=== PATIENT | male | born 1965 | race Caucasian/White ===

== ENCOUNTER 2017-06-01 07:19 | Inpatient (IN) | payer OTHER ==
[~2017-06-01] VITALS: Ht 175.3 cm; Wt 83.9 kg
[2017-06-01 07:27] VITALS: BP 172/95
[2017-06-01] MEDS ORDERED: ACYCLOVIR 400400 MG PO (07:46)
[2017-06-01] MEDS ORDERED: LEXAPRO20 MG PO (07:46)
[2017-06-01 08:01] LABS: URINE BILIRUBIN NEGATIVE (Negative); URINE BLOOD TRACE (Negative); URINE CLARITY CLEAR; URINE COLOR YELLOW; URINE GLUCOSE-RANDOM NEGATIVE (Negative); URINE KETONES NEGATIVE (Negative); URINE LEUKOCYTES-REFLEX NEGATIVE (Negative); URINE NITRITE-REFLEX NEGATIVE (Negative); URINE PROTEIN 1+ (Negative); URINE UROBILINOGEN 0.2 E.U./dl (0.2-1.0)
[2017-06-01 08:23] LABS: HEMATOCRIT 44.5 % (42.0-52.0); HEMOGLOBIN 15.3 gm/dL (14.0-18.0); MCH 29.7 pg (26.0-34.0); MCHC 34.3 g/dL (28.0-37.0); MCV 86.7 fL (80.0-100.0); MPV 8.5 fl. (7.2-11.1); NUCLEATED RBCS 0 /100WBC; PLATELET COUNT* 237 thou/uL (150-400); RBC 5.14 mil/uL (4.50-6.00); WBC 9.1 thou/uL (4.0-11.0)
[2017-06-01 08:35] LABS: ALBUMIN 3.8 g/dL (3.4-5.0); CALCIUM 8.7 mg/dL (8.5-10.1); POTASSIUM 3.9 mmol/L (3.5-5.1); TOTAL BILIRUBIN 0.6 mg/dL (<0.1-1.0); TOTAL PROTEIN 7.4 g/dL (6.4-8.2)
[2017-06-01 08:43] LABS: ABSOLUTE BASOPHILS 0.1 thou/uL (0.0-0.2); ABSOLUTE EOSINOPHILS 0.1 thou/uL (0.0-0.7); ABSOLUTE LYMPHOCYTES 0.9 thou/uL (0.8-5.3); ABSOLUTE MONOCYTES 0.4 thou/uL (0.0-1.2); ABSOLUTE NEUTROPHILS 7.6 thou/uL (1.6-8.1); PLATELET ESTIMATE ADEQUATE
[2017-06-01 09:55] VITALS: BP 128/64
[2017-06-01 10:00] VITALS: BP 142/92
[2017-06-01 15:20] VITALS: BP 140/85
[2017-06-01] MEDS ORDERED: ZYVOX600 MG PO (18:00)
[2017-06-01 18:01] VITALS: BP 140/85
--- NOTE | 2017-06-01 18:26 | NUR ---
PATIENT INSISTED ON DISCHARGING TONIGHT. DR ARCHULETA DISCHARGED PATIENT TO HOME. PRESCRIPTION FOR ZYVOX AND INFORMATION SHEETS GIVEN. IV REMOVED. PATIENT AMBULATORY TO EXIT. LEFT WITH .
== END 2017-06-01 18:10 | disposition left against medical advice (07) | DRG 155 ==
LOC: M.ERS 07:19 → M.TBA-ER 08:04 → M.3W 09:56
PROVIDERS: Emergency Medicine Emergency Medical Services; ADMIT Family Medicine
DX: J34.0 Abscess, furuncle and carbuncle of nose (principal); R65.10 Systemic inflammatory response syndrome (SIRS) of non-infectious origin without acute organ dysfunction; F32.9 Major depressive disorder, single episode, unspecified; F41.9 Anxiety disorder, unspecified; B95.62 Methicillin resistant Staphylococcus aureus infection as the cause of diseases classified elsewhere; F10.10 Alcohol abuse, uncomplicated; F17.210 Nicotine dependence, cigarettes, uncomplicated; Z79.899 Other long term (current) drug therapy; Z88.8 Allergy status to other drugs, medicaments and biological substances; Z82.49 Family history of ischemic heart disease and other diseases of the circulatory system

== ENCOUNTER → 2019-08-26 | Outpatient (CLI) | payer OTHER ==
[~2019-08-26] MED LIST: ACYCLOVIR 400400 MG PO; LEXAPRO20 MG PO; ZYVOX600 MG PO
== END ==
LOC: M.LAB 16:24
PROVIDERS: ATTEND Internal Medicine Gastroenterology
DX: Z01.812 Encounter for preprocedural laboratory examination (principal); Z11.59 Encounter for screening for other viral diseases; Z80.0 Family history of malignant neoplasm of digestive organs

== ENCOUNTER → 2019-09-01 | Outpatient (CLI) | payer OTHER | LOC: M.LAB 12:55 | PROVIDERS: ATTEND Internal Medicine Gastroenterology | DX: Z01.812 Encounter for preprocedural laboratory examination (principal); Z11.59 Encounter for screening for other viral diseases; Z80.0 Family history of malignant neoplasm of digestive organs ==

== ENCOUNTER 2019-09-09 08:04 | Inpatient (IN) | payer OTHER ==
[~2019-09-09] VITALS: Ht 175.3 cm; Wt 88.8 kg
[2019-09-09 08:07] VITALS: BP 161/92
[2019-09-09] MEDS ORDERED: LISINOPRIL2.5 MG PO (08:12)
[2019-09-09] MEDS ORDERED: OLANZAPINE5 M1 PO (08:13)
[2019-09-09] MEDS ORDERED: LEVAQUIN 500 M500 M3 PO (08:14)
[2019-09-09 08:38] LABS: HEMATOCRIT 42.3 % (42.0-52.0); HEMOGLOBIN 14.4 gm/dL (14.0-18.0); MCH 29.2 pg (26.0-34.0); MCHC 34.1 g/dL (28.0-37.0); MCV 85.4 fL (80.0-100.0); MPV 7.4 fl. (7.2-11.1); NUCLEATED RBCS 0 /100WBC; PLATELET COUNT* 421 thou/uL (150-400); RBC 4.95 mil/uL (4.50-6.00); RDW-CV 12.3 % (10.5-14.5); WBC 20.2 thou/uL (4.0-11.0)
[2019-09-09 08:45] LABS: CALCIUM 8.6 mg/dL (8.5-10.1); POTASSIUM 3.6 mmol/L (3.5-5.1)
[2019-09-09 08:52] LABS: BE -0.6 mmol/L (-2 to +3); PCO2 28.7 mmHg (35.0-45.0); PO2 65.2 mmHg (75.0-100.0)
[2019-09-09 08:56] LABS: APTT 29.9 Seconds (25.0-31.3); INR 1.2; PROTIME 12.3 Seconds (9.20-11.50)
[2019-09-09 08:57] LABS: ALBUMIN 2.7 g/dL (3.4-5.0); MAGNESIUM 1.8 mg/dL (1.8-2.4); TOTAL BILIRUBIN 0.9 mg/dL (<0.1-1.0); TOTAL PROTEIN 7.2 g/dL (6.4-8.2)
[2019-09-09 09:22] LABS: ABSOLUTE MONOCYTES 0.2 thou/uL (0.0-1.2)
[2019-09-09 09:23] LABS: ANISOCYTOSIS 1+; PLATELET ESTIMATE INCREASED; POIKILOCYTOSIS 1+
[2019-09-09 09:34] LABS: URINE BILIRUBIN NEGATIVE (Negative); URINE BLOOD TRACE (Negative); URINE CLARITY CLEAR; URINE COLOR YELLOW; URINE GLUCOSE-RANDOM NEGATIVE (Negative); URINE KETONES NEGATIVE (Negative); URINE LEUKOCYTES-REFLEX NEGATIVE (Negative); URINE NITRITE-REFLEX NEGATIVE (Negative); URINE PROTEIN NEGATIVE (Negative)
[2019-09-09 13:12] VITALS: BP 137/87
[2019-09-09 13:30] VITALS: BP 147/86
[2019-09-09 13:43] LABS: BF RBC 5165 /mm3; TOTAL CELL COUNT 415 /mm3
[2019-09-09 14:31] LABS: BF OTHER CYTO TO FOLLOW; CLARITY CLOUDY; TOTAL VOLUME 40 ml
[2019-09-09 14:34] LABS: BF LYMPHOCYTES 18 %; BF POLYS 82 %
[2019-09-09 15:03] LABS: SOURCE PLEURAL FLUID
--- NOTE | 2019-09-09 15:54 | EKG ---
[place] [address] ELECTROCARDIOGRAM REPORT Name: BUTCH ROSAS Room: [address] ADM IN .R.#: [id number] Admission: 09/09/19 Attend Phys: Bob Jasso, Discharge: Date of : 63 Date of Service: 09/09/19818 Report #: [id number] THIS REPORT FOR: //name// [facility] ED Test Date: 2019-09-09 Test Time: 08:19:40 Pat Name: BUTCH ROSAS Department: Room: [facility] Gender: M Chief Librarian Circulation [place] [facility] [place] 1965 Requested By: Brandi Saravia Order Number: [id number] Jesús MD: Bruce Rock Measurements Intervals [place] Rate: 133 P: RI: QRS: -28 QRSD: 89 T: 263 QT: 358 QTc: 533 Interpretive Statements Sinus tachycardia, Baseline artifact Inferior infarct, age indeterminate ST elevation, consider anterior injury Lateral leads are also involved Prolonged QT interval No previous ECG available for comparison Electronically Signed On 09-09-2019 13:03:10 CDT by Bruce Rock Electronically Signed On 09-09-2019 15:54:27 CDT by Bruce Rock [email or web address] <ELECTRONICALLY SIGNED> By: Bruce Rock MD, FACC 09/09/19 1554 8 8 Bruce Rock MD, FAC /EPI
--- NOTE | 2019-09-09 16:10 | NUR ---
PATINET RESTING IN BED.UP AD VERNON IN ROOM. SINUS TACH ON MONITOR. 2L PER NASAL CANULA. DENIES PAIN. HOURLY ROUNDING COMPLETED FOR PATINET SAFETY.
--- NOTE | 2019-09-09 16:50 | EKG ---
[place] [address] ELECTROCARDIOGRAM REPORT Name: BUTCH ROSAS Room: [address] ADM IN .R.#: [id number] Admission: 09/09/19 Attend Phys: Bob Jasso, Discharge: Date of : 63 Date of Service: 09/09/19900 Report #: [id number] THIS REPORT FOR: //name// [facility] ED Test Date: 2019-09-09 Test Time: 09:01:32 Pat Name: BUTCH ROSAS Department: Room: [address] Gender: M Finance Consultant: LIONEL : 1965 Requested By: Brandi Saravia Order Number: [id number] Jesús MD: Clay Calvin Measurements Intervals [place] Rate: 115 P: FL: QRS: 36 QRSD: 101 T: 72 QT: 296 QTc: 410 Interpretive Statements sinus tachycardia artifact noted Compared to ECG 09/09/2019 08:19:40 ST (T wave) deviation still present Electronically Signed On 09-09-2019 16:49:55 CDT by Clay Calvin [email or web address] <ELECTRONICALLY SIGNED> By: Clay Calvin MD, [facility] 09/09/19 1649 0901 0901 Clay Calvin MD, [facility] /EPI
--- NOTE | 2019-09-09 17:36 | 2DMMODE ---
[place] [address] 2 D/M-MODE ECHOCARDIOGRAM Name: BUTCH ROSAS Room: [address] IN [place]#: [id number] Admission: 09/09/19 Attend Phys: Bob Jasso, Discharge: Date of : 63 Date of Service: 09/09/19 1735 Report #: [id number] THIS REPORT FOR: cc: Abhi Ramsey John E. DO Blick,Clay Lima MD [facility] ~ APPROVED REPORT Study performed: 09/09/2019 15:44:17 EXAM: Comprehensive 2D, Doppler, and color-flow Echocardiogram Patient Location: In-Patient Room #: [facility] Status: routine BSA: 2.07 HR: 95 bpm BP: 137/87 mmHg Rhythm: NSR Other Information Study Quality: Good Indications Atrial Fibrillation 2D Dimensions IVSd: 11.11 (7-11mm) LVOT Diam: 21.09 (18-24mm) LVDd: 38.87 mm PWd: 10.49 (7-11mm) Ascending Ao: 30.16 (22-36mm) LVDs: 25.78 (25-40mm) Aortic Root: 35.37 mm Volumes Left Atrial Volume (Systole) LA ESV Index: 23.20 mL/m2 Aortic Valve AoV Peak Sea.: 1.75 m/s AO Peak Gr.: 12.22 mmHg LVOT Max P.07 mmHg AO Mean Gr.: 5.89 mmHg LVOT Mean P.16 mmHg LVOT Max V: 1.33 m/s AO V2 VTI: 23.24 cm LVOT Mean V: 0.80 m/s [place] (VTI): 3.39 cm2 LVOT V1 VTI: 22.59 [place] [address] 2 D/M-MODE ECHOCARDIOGRAM Name: BUTCH ROSAS Room: [address] IN ..#: [id number] Admission: 09/09/19 Attend Phys: Bob Jasso, Discharge: Date of : 63 Date of Service: 09/09/19 1735 Report #: [id number] Mitral Valve E/A Ratio: 1.03 MV Decel. Time: 284.08 ms MV E Max Sea.: 0.83 m/s MV PHT: 82.38 ms MVA (PHT): 2.67 cm2 TDI E/Lateral E': 10.38 E/Medial E': 7.55 Medial E' Sea.: 0.11 m/s Lateral E' Sea.: 0.08 m/s Pulmonary Valve PV Peak Sea.: 1.10 m/s PV Peak Gr.: 4.84 mmHg Left Ventricle The left ventricle is normal size. There is normal LV segmental wall motion. There is normal left ventricular wall thickness. Left ventricular systolic function is normal. The left ventricular ejection fraction is within the normal range. LVEF is 65-70%. Right Ventricle The right ventricle is normal size. The right ventricular systolic function is normal. Atria The left atrium size is normal. The right atrium size is normal. Aortic Valve The aortic valve is normal in structure. No aortic regurgitation is present. There is no aortic valvular stenosis. Mitral Valve The mitral valve is normal in structure. There is no mitral valve regurgitation noted. No evidence of mitral valve stenosis. Tricuspid Valve The tricuspid valve is normal in structure. Unable to assess PA pressure. Trace tricuspid regurgitation. Pulmonic Valve Pulmonic valve is not well visualized. There is no pulmonic valvular regurgitation[place] [address] 2 D/M-MODE ECHOCARDIOGRAM Name: ALCONJOHNBUTCH Room: [address] IN [facility]#: [id number] Admission: 09/09/19 Attend Phys: Bob Jasso, Discharge: Date of : 63 Date of Service: 09/09/19 1735 Report #: [id number] The aortic root is normal in size. IVC is normal in size and collapses >50% with inspiration. Pericardium There is no pericardial effusion. <Conclusion> Left ventricular systolic function is normal. The left ventricular ejection fraction is within the normal range. <ELECTRONICALLY SIGNED> By: Clay Calvin MD, [facility] 09/09/19 1735 1735 1735 Clay Calvin MD, [facility] /INF
[2019-09-09 19:50] VITALS: BP 138/81
[2019-09-10] VITALS: BP 118/62
[2019-09-10 02:06] LABS: GLYCOHEMOGLOBIN (HGB A1C) 6.6 % (4.8-5.6)
[2019-09-10 04:00] VITALS: BP 144/90
[2019-09-10 04:49] LABS: HEMATOCRIT 43.1 % (42.0-52.0); HEMOGLOBIN 14.4 gm/dL (14.0-18.0); MCH 29.5 pg (26.0-34.0); MCHC 33.4 g/dL (28.0-37.0); MCV 88.1 fL (80.0-100.0); RBC 4.89 mil/uL (4.50-6.00); RDW-CV 12.3 % (10.5-14.5)
[2019-09-10 05:12] LABS: CALCIUM 8.8 mg/dL (8.5-10.1); CREATININE 0.9 mg/dL (0.6-1.3); MAGNESIUM 2.4 mg/dL (1.8-2.4); POTASSIUM 4.4 mmol/L (3.5-5.1)
--- NOTE | 2019-09-10 07:52 | NUR ---
PT CARE ASSUMED AT 1930. SAT MAINTAINED IN O2. PT IS DROWSY. ALERT AND ORIENTED X4. DENIES PAIN AND SOB. CALL LIGHT WITHIN REACH AND BED IN LOW POSITION. HOURLY ROUNDING DONE FOR PT SAFETY.
[2019-09-10 08:00] VITALS: BP 125/89
[2019-09-10 12:21] VITALS: BP 123/73
--- NOTE | 2019-09-10 15:33 | CON ---
[address] [address] CONSULTATION Name: BUTCH ROSAS Room: [address] IN .R.#: [id number] Admission: 09/09/19 Attend Phys: Bob Jasso MD Discharge: Date of : 63 Report #: [id number] THIS REPORT FOR: //name// cc: Abhi Ramsey John E. DO ~ THIS REPORT FOR: //name// CC: Bob Ramsey DATE OF SERVICE: 09/10/2019 CONSULT REQUESTED BY: Bob Jasso MD INDICATION FOR CONSULTATION: Pleural effusion. HISTORY OF PRESENT ILLNESS: This is a 54-year-old gentleman. His past medical history includes an extensive history of smoking. The patient, however, has not been previously diagnosed with COPD. The patient also has previously been treated by Dr. Ronquillo in 2018 for a complicated nasal cellulitis/facial cellulitis, which is reported to be statistically frequently caused by MRSA. There is no positive culture for MRSA, however. The patient had back then received linezolid. More recently, the patient has been sick for 1-1/2 weeks, in fact before this about 2-1/2 weeks ago, he was planning a colonoscopy; and therefore, had a COVID-19 test performed and since then he has been tested for COVID-19 for around 4 or 5 times, all of which are negative. The patient reports that he started getting sick around 10 days ago. He reports that his primary complaint has been chest pain. He says that he has been having chest pain on the left side of his chest associated with respiration and coughing to the point that at times he was screaming. The patient also reports that he had a high-grade fever up to 101 degrees Fahrenheit at home and did have chills and sweats as well. Upon arrival here, the patient's temperature was 37.9. The patient reports that for similar period of time, he has had a significant cough. The patient reports that initially in fact did have significant sputum production, which was yellow as well as green. The patient reports that he is still coughing, but in fact the sputum production is now subsiding. He reports shortness of breath as well, primarily on exertion also for around the last 10 days. The patient at this time does not have a nose complaints. He does not have a sore throat. He does not have swelling of lower extremities. He does not have calf pain. The patient has been treated as an outpatient for these complaints. He has finished two Z-PAKs. He has received a prednisone taper as well. The patient does not report any significant shortness of [place] [address] CONSULTATION Name: BUTCH ROSAS Room: [address] IN .R.#: [id number] Admission: 09/09/19 Attend Phys: Bob Jasso MD Discharge: Date of : 63 Report #: [id number] baseline. He, however, does have sleep complaints at his baseline, primarily related to daytime sleepiness at times. I asked him a total of 14 questions for review of systems. The patient's review of systems is negative except as mentioned above. PAST MEDICAL HISTORY: Facial/nasal cellulitis as described above, depression, skin allergies. There is a clinical history consistent with obstructive sleep apnea. The patient has previously not been diagnosed. The patient had an echocardiogram performed yesterday, which shows a left ventricular ejection fraction of 65-70% without elevation in right heart pressures. SOCIAL HISTORY: He has an extensive history of smoking around 1-2 packs a day, has been smoking for several decades and was smoking until 08/27 of this year. No known history of heavy alcohol use or illegal drug use. CURRENT MEDICATIONS: List in [employer] reviewed. HOME MEDICATIONS: List also in [employer] reviewed. ALLERGIES: REPORTED TO BE ALLERGIC TO KEFLEX AND FORMALDEHYDE. He is, however, tolerating Zosyn without reaction. FAMILY HISTORY: There is no pertinent family history. PHYSICAL EXAMINATION: GENERAL: He is alert, awake and oriented, does not appear to be in any distress at this time. He had a fever of 37.9 overnight. He is 36.6 now. VITAL SIGNS: Has a pulse of 82 and a blood pressure of 144/90, he is on 4 liters oxygen via nasal cannula and is oxygenating 94-95%. His respiratory rate is 16-18. HEENT: Head is normocephalic and atraumatic. Pupils are equal and reactive. There is no throat erythema. Airway is Mallampati 2. NECK: Does not show raised JVP, asymmetry, mass or lymph nodes. CHEST: On inspection did show symmetrical expansion as well as on palpation, but on auscultation, there is a marked decrease in breath sounds on the left side, in fact breath sounds are absent at the left lung base. I do not hear any added sounds. HEART: Regular. There is no murmur. ABDOMEN: Soft and nontender. EXTREMITIES: Lower extremities show no edema, no calf tenderness. SKIN: Dry and intact. NEUROLOGICAL: Moves all extremities bilaterally equally and spontaneously with no focal deficit identified. LABORATORY DATA: The patient's CTA chest is reviewed. His two chest x-rays are also reviewed. There is a left lower lobe infiltrate. There is also a [facility] [address] [place] [address] CONSULTATION Name: BUTCH ROSAS Room: [address] IN [facility]#: [id number] Admission: 09/09/19 Attend Phys: Bob Jasso MD Discharge: Date of : 63 Report #: [id number] left-sided pleural effusion. There is a suspicion of loculations in the pleural effusion. Also, there is suspicion of empyema. There is also some mediastinal lymphadenopathy, presently to be as reactive. There are no pulmonary emboli. The patient's CBC as well as chemistries are in [facility]. These are reviewed. Coagulation studies in [facility] reviewed. Arterial blood gas consistent with acute hypoxemic respiratory failure in [facility] reviewed. There is respiratory alkalosis. The patient has a large amount of rbc's in his pleural fluid. The glucose and protein as well as LDH are pending. The COVID-19 screen is again negative. ASSESSMENT AND PLAN: 1. Left lower lobe infiltrate with pleural effusion/suspicion of empyema. The patient has already had thoracentesis performed yesterday. Unfortunately, only 40 mL of fluid could be drained. This is consistent with a loculated pleural effusion. The patient is planned for a pigtail chest tube placement today. I fully agree with this. However, the likelihood that this pleural effusion will fail to drain with a pigtail chest tube is significant. I do recommend a full drainage of this pleural effusion; and therefore, if adequate drainage is not achieved with the placement of the chest tube then I would recommend transferring this patient to a facility where a thoracic surgeon is available for a VATS procedure or thoracotomy. Meanwhile, since the patient has already received 2 courses of Z-SRINATH, I would go ahead and discontinue his azithromycin. I agree with continuing with Zosyn. Would recommend adding vancomycin. We will follow cultures from the thoracentesis fluid. Sputum culture has already been ordered and is pending. I recommend that we also obtain a nasal swab for MRSA. 2. History of smoking. The patient may have underlying mild chronic obstructive pulmonary disease as well, previously undiagnosed. Therefore, I switched his DuoNebs to schedule. He is ordered 3 doses of prednisone 60 mg. I for now agree with this. Certainly additional steroids could be administered should the patient's condition deteriorate. Smoking cessation is strongly recommended. 3. Hypersomnia. Recommend a sleep study later. 4. Deep venous thrombosis prophylaxis. The patient is on Lovenox. Thanks for this consultation. <ELECTRONICALLY SIGNED> By: Michael Buck MD 09/10/19 1533 1124 1145Adwaine Buck MD /nt
--- NOTE | 2019-09-10 16:28 | NUR ---
CM SPOKE TO THE PT AND HIS SPOUSE TO DISCUSS DISCHARGE PLANNING NEEDS AND TO INFORM OF THE ROLE OF CM. PT A&O. PT INFORMS THAT HE IS NORMALLY INDEPENDENT, ACTIVE, AND WORKS. PT OWNS 0 DME. OT HAS 0 HH OR SNF HX. N/N ANTICIPATED. CM WILL REMAIN AVAILABLE TO ASSIST AND FOLLOW NEEDED.
--- NOTE | 2019-09-10 16:54 | NUR ---
PT HAD CHEST TUBE PLACED TO L SIDE TODAY. ATRIUM TO SUCTION. DRESSING DRY AND INTACT.
[2019-09-10 17:22] VITALS: BP 123/76
--- NOTE | 2019-09-10 17:24 | EKG ---
[place] [address] ELECTROCARDIOGRAM REPORT Name: BUTCH ROSAS Room: [address] ADM IN .R.#: [id number] Admission: 09/09/19 Attend Phys: Bob Jasso, Discharge: Date of : 63 Date of Service: 09/10/19 0853 Report #: [id number] THIS REPORT FOR: //name// [facility] Test Date: 2019-09-10 Test Time: 08:53:38 Pat Name: BUTCH ROSAS Department: Room: [address] Gender: M Operations Director: [place] : 1965 Requested By: Arely King Order Number: [id number] Jesús MD: Clay Calvin Measurements Intervals [place] Rate: 82 P: 22 PA: 154 QRS: -1 QRSD: 96 T: 28 QT: 375 QTc: 438 Interpretive Statements Sinus rhythm Compared to ECG 09/09/2019 09:01:32 Sinus tachycardia no longer present Electronically Signed On 09-10-2019 17:24:11 CDT by Clay Calvin [email or web address] <ELECTRONICALLY SIGNED> By: Clay Calvin MD, [facility] 09/10/19 1724 0853 0853 Clay Calvin MD, [facility] /EPI
--- NOTE | 2019-09-10 18:23 | NUR ---
CHEST TUBE WITH 55ML DRAINAGE.
[2019-09-10 19:07] LABS: BODY FLUID LDH 308 IU/L (()); BODY FLUID PH 7.6 (Not Estab.); BODY FLUID PROTEIN 5.7 g/dL (())
[2019-09-10 19:50] VITALS: BP 126/78
[2019-09-11] VITALS: BP 120/84
[2019-09-11 04:00] VITALS: BP 153/78
--- NOTE | 2019-09-11 05:39 | NUR ---
PT CARE ASSUMED AT 1930. SAT MAINTAINED IN O2. DENIES PAIN AND SOB. ALERT AND ORIENTED X4. CALL LIGHT WITHIN REACH AND BED IN LOW POSITION. HOURLY ROUNDING DONE FOR PT SAFETY.
[2019-09-11 06:04] LABS: HEMATOCRIT 37.4 % (42.0-52.0); HEMOGLOBIN 12.7 gm/dL (14.0-18.0); MCH 29.1 pg (26.0-34.0); MCV 85.6 fL (80.0-100.0); MPV 7.5 fl. (7.2-11.1); RBC 4.37 mil/uL (4.50-6.00); RDW-CV 12.2 % (10.5-14.5); WBC 23.7 thou/uL (4.0-11.0)
[2019-09-11 06:37] LABS: CALCIUM 8.3 mg/dL (8.5-10.1); CREATININE 0.9 mg/dL (0.6-1.3); MAGNESIUM 2.1 mg/dL (1.8-2.4); POTASSIUM 3.8 mmol/L (3.5-5.1)
--- NOTE | 2019-09-11 07:55 | NUR ---
ASSUMED CARE OF PATIENT THIS MORNING FROM NIGHT NURSE. PT IS DOING WELL, CHEST TUBE IS INTACT. HE HAS NO CO OF PAIN OR NAUSEA. HE WAS EDUCATED ON FALL SAFETY AND USING THE CALL LIGHT FOR ASSISTANCE. WILL CONTINUE TO MONITOR. BED ALARM IS ON.
[2019-09-11 08:00] VITALS: BP 136/93
[2019-09-11 12:00] VITALS: BP 139/76
[2019-09-11 20:00] VITALS: BP 167/97
[2019-09-12] VITALS: BP 162/94
--- NOTE | 2019-09-12 04:00 | NUR ---
ASSUMED PT CARE AT APPROX 1930. PT IS AWAKE AND ORIENTED X4 CHAIN OFFBEARER IN PLACE AND IS TRACING SR. CHEST TUBE INTACT WITH SEROUS OUTPUT. PT DENIES PAIN/DISCOMFORT. NO ACUTE CHANGES, DESATURATIONS THROUGHOUT THIS SHIFT. CALL LIGHT WITHIN REACH. HOURLY ROUNDING DONE FOR PT SAFETY. FALL PRECAUTIONS IN PLACE.
--- NOTE | 2019-09-12 07:42 | NUR ---
PT IS TRANSFERRED TO [facility] ROOM 105 AT 0740, ALL BELONGINGS WITH PT.
[2019-09-12 08:51] VITALS: BP 156/100
--- NOTE | 2019-09-12 12:23 | NUR ---
ASSUMED CARE OF PT AROUND 0740 THIS AM. REFER TO ASSESSMENT. CHEST TUBE CONTINUES TO SUCTION. IV ABTS ADMINISTERED ORDERED. PULMONOLOGISTS DISCUSSED [place]/ DNase INJECTIONS TO CHEST TUBE SITE. PHARMACY CONTACTED TO FIND PROTOCOLS REGARDING TPA INJECTIONS. PHARMACY CONTACTED [facility] WHO STATES THEY DO NOT HAVE PROTOCOLS IN PLACE AT THIS TIME. NOTIFIED HOSPITALISTS AND INVESTMENT PROFESSIONAL OF NO CURRENT PROTOCOL AND DNase NONFORMULARY AT THIS [facility]. PULMONOLOGISTS DISAGREES AND STATES [facility] DOES HAVE PROTOCOLS. DR. [place]ON STATES HE WILL DISCUSS PLAN OF CARE WITH DR. GOLD. NO OTHER CONCERNS AT THIS TIME. PT MAINTAINING OXYGEN SATURATION >92% ON RA. CLWR. WCTM.
[2019-09-12 15:00] VITALS: BP 113/71; BP 167/90
[2019-09-12 20:20] VITALS: BP 164/96
--- NOTE | 2019-09-13 04:31 | NUR ---
ASSUMED CARE AT 1910H, ON RA AND TOLERATED, SEEN ON BED RESTING WITH LEFT CHEST TUBE WITH SEROSANGINOUS OUTPUT. NO DISTRESS AND NO BLEEDING NOTED. PLAN FOR CHEST TPA/DNASE OR VATS, TO BE DECIDED BY PULMO. CONTINUE MONITORING AND TOWARD GOALS.
[2019-09-13 05:52] LABS: CALCIUM 8.5 mg/dL (8.5-10.1); CREATININE 0.9 mg/dL (0.6-1.3); MAGNESIUM 1.9 mg/dL (1.8-2.4); POTASSIUM 3.7 mmol/L (3.5-5.1)
[2019-09-13 08:20] VITALS: BP 172/100
--- NOTE | 2019-09-13 15:08 | PATH ---
[address] [address] PATHOLOGY RPT PROCEDURE Name: BUTCH ROSAS Room: [address] IN [facility]#: [id number] Admission: 09/09/19 Date of : 63 Discharge: Report #: [id number] Path Case #: [id number] Note [facility] Accession Number: [id number] TESTS RESULT FLAG UNITS REF RANGE LAB Clinician Provided Cytology Information No. of containers..01 Other (Miscellaneous) Source: 01 L. PLEURAL DIAGNOSIS: 02 L. PLEURAL NEGATIVE FOR MALIGNANT EPITHELIAL CELLS. VERY RARE MESOTHELIAL CELLS ARE PRESENT. THIS INTERPRETATION INCLUDES EVALUATION OF A CELL BLOCK. PAUCICELLULAR SPECIMEN WITH VERY RARE MESOTHELIAL CELLS SHOWING REACTIVE AND DEGENERATIVE CHANGES AMONGST PREDOMINANTLY CHRONIC INFLAMMATORY CELLS AND PROTIENACEOUS FLUID. Pathologist ICD10: 02 J90, J96.91, R91.8 Signed out by: 02 Danitza Vallejo MD, Pathologist NPI- [id number] Performed by: 01 Scott Ball, Buffer Operator ([facility]) Gross description: 01 15 ML, CLOUDY YELLOW, 1 TP 1 CB /LCS 09/10/2019 0653 Local FLAG LEGEND: L-Low Normal,H-High Normal,LL-Alert Low,HH-Alert High <-Panic Low,>-Panic High,A-Abnormal,AA-Critical Abnormal Performed at: [address] [place] [address] [place] MD, [address] [place] [address] [address] [facility], [place] [address] Tevin Khan MD, Specimen Comment: A courtesy copy of this report has been sent to [phone] Specimen Comment: Report sent to DR GAN Specimen Comment: A duplicate report has been generated due to demographic updates. Performed at: [address], [place], [place] [id number] MD [place] MD Phone: [phone]
--- NOTE | 2019-09-13 16:41 | NUR ---
CM INFORMED BY THE HOSPITALIST OF THE NEED TO INITIATE TRANSFER FOR THE PT. REASON: CARDIO THORASIC SX AND POSSIBLE DECORTICATION, SENDING PHYSICIAN: DR GREEN, BED: MED SURG/TELE. CM CONTACTED [facility] AND THEY INFORM 'NON BEDS AVAILABLE. [facility] 'NO BEDS AVAILABLE'. [facility] 'NO BEDS AVAILABLE'. DR GOLD INFORMS CM TO TRY TO TX PT TO [place] TOMORROW AND THAT HE WILL SPEAK TO THEM TO INFORM OF THIS. CM WILL REMAIN AVAILABLE TO ASSIST AND FOLLOW NEEDED.
--- NOTE | 2019-09-13 17:18 | NUR ---
PATIENT ALERT AND ORIENTED X 4. VITAL SIGNS STABLE ON ROOM AIR. AFEBRILE. IV PATENT AND SALINE LOCKED. ANTIBIOTICS GIVEN PER APR. DENIES PAIN AND NAUSEA AT THIS TIME. CHEST TUBE IN PLACE WITH MINIMAL DRAINAGE. FALL PRECAUTIONS IN PLACE AND BED ALARM ON. HOURLY ROUNDS MAINTAINED THROUGHOUT THE SHIFT. CALL LIGHT WITHIN REACH. NURSING WILL CONINTUE TO MONITOR.
[2019-09-13 18:10] VITALS: BP 152/98
[2019-09-13 19:34] VITALS: BP 164/87
--- NOTE | 2019-09-14 04:29 | NUR ---
ASSUMED PATIENT CARE AT 1900. PATIENT ALERT AND ORIENTED TIMES FOUR. CHEST TUBE IN PLACE. PATIENT VERBALIZES NO PAIN WITH THIS. VERBALIZES HOPE TO BE ABLE TO TRANSFER TO [place] 09/14/19. NO COMPLAINTS OF PAIN OR DISCOMFORT NOTED. HOURLY ROUNDING AND INSURANCE UNDERWRITER COMPLETED DOCUMENTED. WILL CONTINUE TO MONITOR.
[2019-09-14 04:58] LABS: ABSOLUTE BASOPHILS 0.1 thou/uL (0.0-0.2); ABSOLUTE EOSINOPHILS 0.5 thou/uL (0.0-0.7); ABSOLUTE LYMPHOCYTES 2.2 thou/uL (0.8-5.3); ABSOLUTE NEUTROPHILS 11.1 thou/uL (1.6-8.1); BASOPHILS 0.4 %; EOSINOPHILS 3.6 %; LYMPHOCYTES 14.7 %; MCH 29.5 pg (26.0-34.0); MCHC 34.6 g/dL (28.0-37.0); MCV 85.3 fL (80.0-100.0); MPV 7.2 fl. (7.2-11.1); NUCLEATED RBCS 0 /100WBC; PLATELET COUNT* 491 thou/uL (150-400); POLYS 74.3 %; RBC 5.39 mil/uL (4.50-6.00); RDW-CV 12.5 % (10.5-14.5); WBC 14.9 thou/uL (4.0-11.0)
[2019-09-14 05:12] LABS: HEMOGLOBIN 15.9 gm/dL (14.0-18.0)
[2019-09-14 05:18] LABS: ALBUMIN 3.1 g/dL (3.4-5.0); CALCIUM 8.7 mg/dL (8.5-10.1); CREATININE 1.1 mg/dL (0.6-1.3); MAGNESIUM 1.9 mg/dL (1.8-2.4); POTASSIUM 4.1 mmol/L (3.5-5.1); TOTAL BILIRUBIN 0.5 mg/dL (<0.1-1.0); TOTAL PROTEIN 7.3 g/dL (6.4-8.2)
--- NOTE | 2019-09-14 09:08 | NUR ---
CM CONTINUES TO ASSIST WITH TRANSFER OF PT FOR CARDIO THORASIC SX AND POSSIBLE DECORTICATION. CM SPOKE TO [facility] AND FAXED UPDATED CLINICAL INFO. [facility] INFORMS THAT AT THIS TIME 'ALL [facility] FACILITIES ARE CLOSED TO [place], BUT MAY BE OPEN LATER ON TODAY AND WILL RETURN CALL WHEN THAT HAPPENS'. CM ALSO CONTACTED [facility] AND AT THIS TIME THERE ARE NO BEDS AVAILABLE. [facility] REQUEST THAT CM RETURNS CALL AFTER NOON. CM WILL REMAIN AVAILABLE TO ASSIST AND FOLLOW NEEDED.
[2019-09-14 09:40] VITALS: BP 118/76
[2019-09-14 16:30] VITALS: BP 149/95
[2019-09-14 18:36] VITALS: BP 95/61
--- NOTE | 2019-09-14 18:40 | NUR ---
PT AOx4. PT HAD FIBINOLYSIS PROCEDURE DONE TODAY AND RETURNED TO FLOOR STABLE. CHEST TUBE AT -20 PRESSURE, WATER SEAL INTACT, PATENT AND FUNCTIONING WELL. PT HAD EPISODE OF NAUSEA WHEN CHEST TUBE WAS TURNED ON, ZOFRAN GIVEN AND EFFECTIVE. VSS AT THIS TIME. NEW IV PLACED AND VANCOMYCIN CURRENTLY RUNNING. PT HAS NO C/O PAIN. WILL CONTINUE TO MONITOR
[2019-09-14 20:00] VITALS: BP 102/73
[2019-09-15 00:02] VITALS: BP 103/68
[2019-09-15 04:03] VITALS: BP 103/72
--- NOTE | 2019-09-15 06:48 | NUR ---
Alert and oriented x 4. He has a chest tube that is draining from his LLL. Chest tube is at 20 degrees negative pressure and he is set to suction. He did have tubing flushed this shift per stopcock and it has continued to have drainage in his drainage collection system. He's had pain meds x 2. He is getting up independently to bedside to void. He did have O2 started at 2L n/c, roomair O2 was 88-89%. He hasn't slept well this shift.
[2019-09-15 08:10] VITALS: BP 112/70
[2019-09-15 16:00] VITALS: BP 133/85
--- NOTE | 2019-09-15 18:45 | NUR ---
PATIENT RESTING IN BED. PATIENT DENIES ANY PAIN. PATIENT HAS CHEST TUBE IN PLACE WITH YELLOW DRAINAGE. CHEST TUBE FLUSHED X 1 THIS AFTERNOON. PATIENT DENIES ANY TROUBLE BREATHING. PATIENT HAS GOOD APPETITE. PATIENT DENIES ANY NEEDS AT THIS TIME. CALL LIGHT WITHIN REACH.
[2019-09-15 19:50] VITALS: BP 147/94
[2019-09-15 20:21] LABS: SOURCE THORACENTESIS
--- NOTE | 2019-09-16 06:50 | NUR ---
Pt alert and oriented x4. VSS on RA at time of assessment. Pt was supposed to be on 2l. O2 put back on. Pt denied pain this shift. Pt concerned about not having bm for the past 3 days now. Milk of mag given last night and this morning. No bm noted yet. Chest tube flushed as ordered. Derik still at 1150. Pt voids via urinal. Call light within reach. Hourly roundings made. Will continue to monitor.
[2019-09-16 08:10] VITALS: BP 152/96
--- NOTE | 2019-09-16 13:08 | NUR ---
Nutrition: Pt admitted with PNA, effusion - resolving. Eating CHO controlled diet. Meds, hx, labs noted. Albumin 3.1. Some constipation. Wt: 193#. Physician indicated moderate PCM - defer DX. Seen for LOS. No nutrition needs at this time. GOALS: >75% of meals consumed. Low nutrition risk.
[2019-09-16 15:49] VITALS: BP 145/87
--- NOTE | 2019-09-16 17:41 | NUR ---
PATIENT RESTING IN BED. PATIENT IS UP TO CHAIR AND BEDSIDE COMMODE INDEPENDENTLY. PATIENT DENIES ANY PAIN. PATIENT DENIES ANY TROUBLE BREATHING. CHEST TUBE HAS HAD NO NEW DRAINAGE THIS SHIFT, DR GOLD AND DR GREEN NOTIFIED. PATIENT HAS COMPALINTS OF CONSTIPATION, DID HAVE BM X 1 AFTER TREATMENT. PATIENT DENIES ANY NEEDS AT THIS TIME. CALL LIGHT WITHIN REACH.
[2019-09-16 19:45] VITALS: BP 156/95
[2019-09-17 04:00] VITALS: BP 153/96
[2019-09-17 07:40] VITALS: BP 165/92
--- NOTE | 2019-09-17 13:41 | NUR ---
PATIENT RECEIVED TPA TO CHEST TUBE BY IR NURSE. THIS NURSE AND IR NURSE IN HALLWAY AFTER TPA WAS ADMINISTERED AND PATIENT CALLED OUT SAYING HE WAS HAVING TROUBLE BREATHING. THIS NURSE AND IR NURSE WENT TO ROOM AND PATIENT NOTED TO BE SITTING ON SIDE OF BED. 02 SAT 94% ON RA AND HR 102-109. PATIENT INSTRUCTED ON DEEP BREATHING. PATIENT PLACED ON 2L NC. 02 SAT 95-96% AND HR 102-103. PATIENT SETTLED BACK IN BED. THIS NURSE OBSERVED PATIENT 2 MORE TIMES FROM [id number] AND PATIENT NOTED TO BE SITTING COMFORTABLY IN BED WITH 02 SAT 95-96% AND HR REMAINED AT 102-103. WILL CONTINUE TO MONITOR.
--- NOTE | 2019-09-17 15:14 | NUR ---
CHEST TUBE CLAMPED SINCE 1300 PER ORDERS FOR TPA. AFTAB WEIR RN HERE TO FLUSH TUBE AND UNCLAMP, PATIENT BECOMING INCREASILY UNCOMFORTABLE. 02 SAT DID REMAIN WNL'S. CHEST TUBE WAS PREVIOUSLY ON WATER SEAL PRIOR TO TPA. CHEST TUBE NOW TO SUCTION PER ORDERS. DR. GOLD AWARE THAT CHEST TUBE WOULD LIKELY BE PLACED BACK TO SUCTION AFTER TPA GIVEN. WILL CONTINUE TO MONITOR.
[2019-09-17 15:30] VITALS: BP 145/90
--- NOTE | 2019-09-17 15:41 | NUR ---
CM INFORMED THAT PT WILL NEED TO REMAIN INPATIENT FOR AT LEAST 24-48 HRS. CM SPOKE TO THE PT TO DISCUSS DISCHARGE PLANNING NEEDS. NO NEEDS ANTICIPATED. CM WILL REMAIN AVAILABLE TO ASSIST AND FOLLOW NEEDED.
[2019-09-17 15:47] LABS: ABSOLUTE BASOPHILS 0.2 thou/uL (0.0-0.2); ABSOLUTE EOSINOPHILS 0.3 thou/uL (0.0-0.7); ABSOLUTE LYMPHOCYTES 0.8 thou/uL (0.8-5.3); ABSOLUTE MONOCYTES 1.4 thou/uL (0.0-1.2); ABSOLUTE NEUTROPHILS 16.9 thou/uL (1.6-8.1); BASOPHILS 1.1 %; EOSINOPHILS 1.4 %; HEMATOCRIT 39.9 % (42.0-52.0); HEMOGLOBIN 13.4 gm/dL (14.0-18.0); MCH 28.9 pg (26.0-34.0); MCHC 33.5 g/dL (28.0-37.0); MCV 86.4 fL (80.0-100.0); MPV 7.7 fl. (7.2-11.1); NUCLEATED RBCS 0 /100WBC; PLATELET COUNT* 446 thou/uL (150-400); POLYS 86.5 %; RBC 4.62 mil/uL (4.50-6.00); RDW-CV 12.7 % (10.5-14.5); WBC 19.5 thou/uL (4.0-11.0)
[2019-09-17 16:02] LABS: ALBUMIN 2.5 g/dL (3.4-5.0); CALCIUM 8.4 mg/dL (8.5-10.1); CREATININE 6.4 mg/dL (0.6-1.3); MAGNESIUM 2.8 mg/dL (1.8-2.4); POTASSIUM 4.5 mmol/L (3.5-5.1); TOTAL BILIRUBIN 0.6 mg/dL (<0.1-1.0); TOTAL PROTEIN 7.6 g/dL (6.4-8.2)
[2019-09-17 16:58] LABS: ESR (SEDRATE) 114 mm/hr (0-20)
--- NOTE | 2019-09-17 18:01 | NUR ---
DR. GREEN NOTIFIED OF PATIENTS LAB THIS AFTERNOON, DR. GREEN CAME AND ROUNDED ON PATIENT AND ORDERS RECEIVED. PATIENT HAS NEPH CONS. IVF W/O GIVEN ORDERED THEN MAINTANCE AT 125MLS/HR. UA TO BE COLLECTED, PATIENT AWARE. PATIENT ON RA. NO COMPLAINTS AT THIS TIME. FOLLOW UP CXR IN AM.
[2019-09-17 21:20] LABS: URINE BILIRUBIN NEGATIVE (Negative); URINE BLOOD TRACE (Negative); URINE CLARITY CLEAR; URINE COLOR YELLOW; URINE GLUCOSE-RANDOM NEGATIVE (Negative); URINE KETONES NEGATIVE (Negative); URINE LEUKOCYTES NEGATIVE (Negative); URINE NITRITE NEGATIVE (Negative); URINE PROTEIN TRACE (Negative); URINE SPECIFIC GRAVITY 1.015 (1.005-1.030); URINE UROBILINOGEN 0.2 E.U./dl (0.2-1.0)
[2019-09-17 21:30] VITALS: BP 180/105
[2019-09-17 22:30] VITALS: BP 181/91
[2019-09-18 03:45] VITALS: BP 185/98
[2019-09-18 03:56] LABS: ABSOLUTE BASOPHILS 0.1 thou/uL (0.0-0.2); ABSOLUTE EOSINOPHILS 0.3 thou/uL (0.0-0.7); ABSOLUTE LYMPHOCYTES 1.3 thou/uL (0.8-5.3); ABSOLUTE MONOCYTES 1.4 thou/uL (0.0-1.2); BASOPHILS 0.4 %; HEMATOCRIT 39.2 % (42.0-52.0); HEMOGLOBIN 13.3 gm/dL (14.0-18.0); LYMPHOCYTES 7.9 %; MCH 29.3 pg (26.0-34.0); MCV 86.2 fL (80.0-100.0); MONOCYTES 8.8 %; MPV 7.8 fl. (7.2-11.1); NUCLEATED RBCS 0 /100WBC; PLATELET COUNT* 399 thou/uL (150-400); POLYS 80.9 %; RBC 4.55 mil/uL (4.50-6.00); RDW-CV 12.7 % (10.5-14.5)
[2019-09-18 04:11] LABS: CREATININE 6.2 mg/dL (0.6-1.3); MAGNESIUM 2.6 mg/dL (1.8-2.4); POTASSIUM 4.2 mmol/L (3.5-5.1)
--- NOTE | 2019-09-18 06:44 | NUR ---
PT A&O, BP HIGH, TACHY. DR NOTIFIED. MEDS GIVEN ORDERED. PT USES URINAL AND BSC TO VOID. CHEST TUBE IN PLACE DRAINING SMALL AMOUNT OF SANGUIEOUS DRAINAGE. IVF INFUISING. CHEST XRAY DONE THIS MORNING. CALL LIGHT WITHIN REACH. HOURLY ROUNDINGS MADE. WILL CONTINUE TO MONITOR.
[2019-09-18 08:20] VITALS: BP 177/93
[2019-09-18 16:00] VITALS: BP 193/103
[2019-09-18 18:20] VITALS: BP 182/100
--- NOTE | 2019-09-18 19:49 | NUR ---
PATIENT RESTING IN BED. PATIENT DENIES ANY PAIN OR TROUBLE BREATHING. CHEST TUBE IN PLACE WITH 60ML OF SEROUS FLUID TODAY. PATIENT IS UP AD CIERRA TO CHAIR/COMMODE. PATIENT USES URINAL AND HAS HAD GOOD URINE OUTPUT TODAY. IVF AT 125ML/HR INFUSING. PATIENT IS HYPERTENSIVE, NORVASC STARTED TODAY. PHYSICIAN UPDATED VIA [employer] X 2 WITH VITALS THIS EVENING, NO NEW ORDERS RECEIVED. PATIENT IS ANXIOUS ABOUT ELEVATED BLOOD PRESSURE. NO OTHER CONCERNS VOICED AT THIS TIME. CALL LIGHT WITHIN REACH.
[2019-09-18 21:00] VITALS: BP 209/113
[2019-09-18 22:53] VITALS: BP 144/83
[2019-09-19 04:13] LABS: ALBUMIN 2.1 g/dL (3.4-5.0); CALCIUM 7.9 mg/dL (8.5-10.1); CREATININE 6.2 mg/dL (0.6-1.3); POTASSIUM 4.8 mmol/L (3.5-5.1); TOTAL BILIRUBIN 0.6 mg/dL (<0.1-1.0); TOTAL PROTEIN 6.9 g/dL (6.4-8.2)
--- NOTE | 2019-09-19 07:24 | NUR ---
Pt BP is high 209/113, page hospitalist, received order. Coreg given, rechecked 141/83. IVF and antibiotic infusing as ordered. Denies pain. No acute event this shift. Call light within reach, will continue to monitor.
[2019-09-19 10:24] VITALS: BP 193/112
--- NOTE | 2019-09-19 10:31 | CON ---
[address] [address] CONSULTATION Name: BUTCH ROSAS Room: [address] IN ..#: [id number] Admission: 09/09/19 Attend Phys: Bob Jasso MD Discharge: Date of : 63 Report #: [id number] THIS REPORT FOR: //name// cc: Abhi Ramsey John E. DO ~ THIS REPORT FOR: //name// CC: Bob Ramsey DATE OF SERVICE: 09/18/2019 REQUESTING PHYSICIAN: Bob Jasso MD REASON FOR CONSULTATION: Acute kidney injury. HISTORY OF PRESENT ILLNESS: The patient is a 54-year-old gentleman admitted to the hospital on 09/09/2019. He presented that time with complaints of shortness of breath, tachycardia. He was diagnosed with pneumonia. He had a negative COVID test. His pneumonia ____ complicated by a large left parapneumonic pleural effusion and had to have chest tube placed, was on vancomycin. He also was on lisinopril for hypertension. His creatinine went up from 0.9 on 09/13/2019 to 1.1 on 09/14/2019 and 6.4 yesterday, today is 6.2. He was exposed to IV contrast on 09/09/2019, he had CTA with contrast; however, his main exposure was reported to vancomycin. Vancomycin level was 72 from yesterday. PAST MEDICAL HISTORY: Significant for: 1. Hypertension. 2. Depression. 3. History of cellulitis. SOCIAL HISTORY: Positive for extensive smoking history. Not known use of alcohol or illegal drug use. MEDICATIONS: Reviewed. His vancomycin was stopped. REVIEW OF SYSTEMS: Positive for some shortness of breath, although he states that he feels better. He has no problems making urine. He is making a good amount of urine. No dysuria. No fever now. No chills. He is not depressed. No chest pain. Rest of the systems negative. PHYSICAL EXAMINATION: GENERAL: He is awake, alert, and oriented. VITAL SIGNS: His blood pressure today is 177/93, heart rate is 100, respiratory rate is 25. Afebrile. HEENT: [place] [address] CONSULTATION Name: BUTCH ROSAS Room: [address]#: [id number] Admission: 09/09/19 Attend Phys: Bob Jasso MD Discharge: Date of : 63 Report #: [id number] NECK: Supple. LUNGS: Decreased breath sounds, some coarse sounds in the left. Left chest tube is in place. CARDIOVASCULAR: Tachycardia. ABDOMEN: Soft. EXTREMITIES: Lower extremities, no edema. LABORATORY DATA: Report revealed serum sodium of 139, potassium 4.2, chloride 106, carbon dioxide 20, BUN 57, creatinine 6.2. ASSESSMENT: 1. Acute kidney injury likely due to vancomycin toxicity. He was exposed to the contrast, but that was 9 days ago. Contrast nephropathy is very unlikely. 2. Pneumonia with a left parapneumonic effusion. 3. History of atrial flutter. 4. History of hypertension. PLAN: Agree with gentle hydration. Avoid vancomycin. Good sign is that the patient is nonoliguric and his creatinine today is actually slightly lower than yesterday. Continue to monitor. Hopefully, we will not need to dialyze him. <ELECTRONICALLY SIGNED> By: Shabbir Braun MD 09/19/19 1031 1021 Alexvijay Braun MD /nt
[2019-09-19 13:30] VITALS: BP 179/102
--- NOTE | 2019-09-19 13:30 | NUR ---
ASSUMED CARE OF PATIENT FROM [facility]. PTS BLOOD PRESSURE WELL CONTROLLED WITH IV MEDICATIONS AND HIS PAIN WELL CONTROLLED WITH PO PAIN MEDICATIONS. FALL SAFETY EDUCATION GIVEN. BED IN LOWEST POSITION AND CALL LIGHT IN REACH. WILL CONITNUE TO MONITOR.
[2019-09-19 14:00] VITALS: BP 150/89
[2019-09-19 16:00] VITALS: BP 138/90
[2019-09-19 20:20] VITALS: BP 191/108
[2019-09-20] VITALS (8 sets, daily range): BP systolic 135–182; BP diastolic 41–101
[2019-09-20 04:34] LABS: ABSOLUTE BASOPHILS 0.1 thou/uL (0.0-0.2); ABSOLUTE EOSINOPHILS 0.6 thou/uL (0.0-0.7); ABSOLUTE MONOCYTES 1.3 thou/uL (0.0-1.2); ABSOLUTE NEUTROPHILS 12.1 thou/uL (1.6-8.1); BASOPHILS 0.6 %; HEMATOCRIT 37.7 % (42.0-52.0); HEMOGLOBIN 12.7 gm/dL (14.0-18.0); LYMPHOCYTES 12.4 %; MCH 28.9 pg (26.0-34.0); MCHC 33.7 g/dL (28.0-37.0); MCV 85.5 fL (80.0-100.0); MONOCYTES 8.3 %; NUCLEATED RBCS 0 /100WBC; PLATELET COUNT* 376 thou/uL (150-400); POLYS 74.7 %; RBC 4.41 mil/uL (4.50-6.00); RDW-CV 12.6 % (10.5-14.5); WBC 16.1 thou/uL (4.0-11.0)
--- NOTE | 2019-09-20 04:42 | NUR ---
ASSUMED CARE AT 1920H, ON RA AND TOLERATED. SEEN ON BED CALM AND WITH LEFT POSTERIOR CHEST TUBE INTACT, NO AIRLEAK. COMPLAINED OF PAIN AND PRN MED GIVEN. WITH HYPERTENTION, MEDS GIVEN AND PRN LABETALOL. PT REST WELL. NO DISTRESS. CONTINUE MONITORING TOWARD GOALS.
[2019-09-20 04:45] LABS: ALBUMIN 2.1 g/dL (3.4-5.0); CREATININE 6.2 mg/dL (0.6-1.3); POTASSIUM 4.7 mmol/L (3.5-5.1); TOTAL BILIRUBIN 0.5 mg/dL (<0.1-1.0); TOTAL PROTEIN 7.1 g/dL (6.4-8.2)
--- NOTE | 2019-09-20 12:08 | NUR ---
Possible for pt to be ready to dc home with tomorrow. No CM needs expressed or anticipated at this time. SW to remain available to assist with safe dc planning if needs arise.
--- NOTE | 2019-09-20 14:05 | NUR ---
went to patient's room to remove the chest tube located on left side. Patient tolerated procedure well and chest tube was removed without any issues. dressing placed over the site and no complications were noted. Annika Enciso RN at bedside at time of removal and reported to her.
[2019-09-21] VITALS: BP 159/95
[2019-09-21 04:00] VITALS: BP 153/98
[2019-09-21 05:30] LABS: ABSOLUTE BASOPHILS 0.2 thou/uL (0.0-0.2); ABSOLUTE EOSINOPHILS 0.7 thou/uL (0.0-0.7); ABSOLUTE LYMPHOCYTES 1.6 thou/uL (0.8-5.3); ABSOLUTE MONOCYTES 1.1 thou/uL (0.0-1.2); ABSOLUTE NEUTROPHILS 10.5 thou/uL (1.6-8.1); BASOPHILS 1.3 %; EOSINOPHILS 4.9 %; HEMATOCRIT 36.9 % (42.0-52.0); HEMOGLOBIN 12.8 gm/dL (14.0-18.0); LYMPHOCYTES 11.1 %; MCH 29.5 pg (26.0-34.0); MCHC 34.7 g/dL (28.0-37.0); MCV 84.8 fL (80.0-100.0); MPV 7.5 fl. (7.2-11.1); NUCLEATED RBCS 0 /100WBC; PLATELET COUNT* 399 thou/uL (150-400); POLYS 74.7 %; RBC 4.36 mil/uL (4.50-6.00); RDW-CV 12.5 % (10.5-14.5); WBC 14.1 thou/uL (4.0-11.0)
[2019-09-21 05:52] LABS: ALBUMIN 2.3 g/dL (3.4-5.0); CALCIUM 8.4 mg/dL (8.5-10.1); POTASSIUM 4.4 mmol/L (3.5-5.1); TOTAL BILIRUBIN 0.5 mg/dL (<0.1-1.0); TOTAL PROTEIN 7.4 g/dL (6.4-8.2)
[2019-09-21 06:07] LABS: MAGNESIUM 2.4 mg/dL (1.8-2.4); PHOSPHORUS* 6.7 mg/dL (2.5-4.9)
[2019-09-21 08:00] VITALS: BP 162/102
[2019-09-21] MEDS ORDERED: CARVEDILOL12.5 MG PO (08:41)
[2019-09-21] MEDS ORDERED: AMOX TR-K CLV1 EAC3 PO (08:41)
[2019-09-21] MEDS ORDERED: FLORASTOR250 MG PO (08:41)
[2019-09-21] MEDS ORDERED: HYDRALAZINE 10M10 MG PO (08:41)
[2019-09-21] MEDS ORDERED: NORVASC10 MG PO (08:41)
[2019-09-21 12:00] VITALS: BP 147/90
[2019-09-21 16:22] VITALS: BP 169/104
--- NOTE | 2019-09-21 16:38 | NUR ---
Pt possible to dc home with on Friday pending nephrology. Pt may have HH needs at dc. SW to continue to follow to assist with finalizing safe dc plan.
[2019-09-21 20:00] VITALS: BP 182/106
[2019-09-22] VITALS: BP 152/95
[2019-09-22 04:00] VITALS: BP 146/88
[2019-09-22 05:28] LABS: ABSOLUTE BASOPHILS 0.1 thou/uL (0.0-0.2); ABSOLUTE EOSINOPHILS 0.7 thou/uL (0.0-0.7); ABSOLUTE LYMPHOCYTES 1.6 thou/uL (0.8-5.3); ABSOLUTE NEUTROPHILS 10.8 thou/uL (1.6-8.1); BASOPHILS 0.9 %; EOSINOPHILS 4.7 %; HEMATOCRIT 39.3 % (42.0-52.0); HEMOGLOBIN 13.3 gm/dL (14.0-18.0); LYMPHOCYTES 11.1 %; MCH 28.7 pg (26.0-34.0); MCHC 33.8 g/dL (28.0-37.0); MCV 84.7 fL (80.0-100.0); MONOCYTES 7.1 %; MPV 7.7 fl. (7.2-11.1); NUCLEATED RBCS 0 /100WBC; PLATELET COUNT* 426 thou/uL (150-400); POLYS 76.2 %; RBC 4.64 mil/uL (4.50-6.00); RDW-CV 12.6 % (10.5-14.5); WBC 14.1 thou/uL (4.0-11.0)
[2019-09-22 06:01] LABS: ALBUMIN 2.7 g/dL (3.4-5.0); CALCIUM 8.7 mg/dL (8.5-10.1); CREATININE 6.1 mg/dL (0.6-1.3); POTASSIUM 4.4 mmol/L (3.5-5.1); TOTAL BILIRUBIN 0.5 mg/dL (<0.1-1.0); TOTAL PROTEIN 8.1 g/dL (6.4-8.2)
[2019-09-22 06:21] LABS: MAGNESIUM 2.4 mg/dL (1.8-2.4); PHOSPHORUS* 6.7 mg/dL (2.5-4.9)
--- NOTE | 2019-09-22 07:20 | NUR ---
CHANGE OF SHIFT, BEDSIDE REPORT GIVEN PATIENT SEEN AT BEDSIDE, IN BED ASLEEP ASSUMED PATIENT CARE
[2019-09-22 08:00] VITALS: BP 152/90
[2019-09-22 12:00] VITALS: BP 141/91
--- NOTE | 2019-09-22 16:59 | NUR ---
Pt not ready to dc but possible dc tomorrow. Home with and SW to arrange for any HH needs at dc.
[2019-09-22 20:15] VITALS: BP 113/75
[2019-09-23] VITALS: BP 146/91
[2019-09-23 04:00] VITALS: BP 149/90
--- NOTE | 2019-09-23 04:38 | NUR ---
ASSUMED PT CARE AT 1910. NURSING ASSESSMENT COMPLETED AT START OF SHIFT. PT VOICED NO CONCERNS THIS SHIFT. HOURLY ROUNDING COMPLETED. SR/ST ON SENIOR ACCOUNT MANAGER. CALL LIGHT WITHIN REACH. PT DENIES PAIN. CALL LIGHT WITHIN REACH.
[2019-09-23 05:31] LABS: HEMATOCRIT 39.3 % (42.0-52.0); HEMOGLOBIN 13.6 gm/dL (14.0-18.0); MCH 29.1 pg (26.0-34.0); MCHC 34.5 g/dL (28.0-37.0); MCV 84.2 fL (80.0-100.0); MPV 7.3 fl. (7.2-11.1); RBC 4.67 mil/uL (4.50-6.00); RDW-CV 12.8 % (10.5-14.5)
[2019-09-23 06:32] LABS: CALCIUM 8.8 mg/dL (8.5-10.1); CREATININE 5.3 mg/dL (0.6-1.3); MAGNESIUM 2.3 mg/dL (1.8-2.4); POTASSIUM 4.5 mmol/L (3.5-5.1)
--- NOTE | 2019-09-23 07:05 | NUR ---
CHANGE OF SHIFT, BEDSIDE REPORT GIVEN PATIENT SEEN AT BEDSIDE IN BED ASLEEP ASSUMED PATIENT CARE
[2019-09-23 08:00] VITALS: BP 148/98
[2019-09-23 10:35] VITALS: BP 148/98
--- NOTE | 2019-09-23 11:05 | NUR ---
PATIENT DISCHARGED TO HOME WITH H/H IV OUT AND HEART MONITOR REMOVED PERSONAL BELONGINGS RETURNED DISCHARGE INFORMATION REVIEWED, PAPERWORK SIGNED, AND COPIES GIVEN PATIENT ESCORT OUT TO WAITING VEHICLE
[2019-09-23 11:18] VITALS: BP 148/98
--- NOTE | 2019-09-23 11:19 | NUR ---
SW met with pt and pt to discuss pt dc home with today and with services to follow. Pt and pt preference for agency in network with their insurance and discussed possibly [facility] would be their choice. [facility] faxed referral and orders to HH intake and discussed with Jolynn who is assuring that they would be able to accept pt. [facility] ph [phone]
[2019-09-23] MEDS ORDERED: HYDRALAZINE 10M10 MG PO (14:30)
== END 2019-09-23 11:05 | disposition home health service (06) | DRG 871 ==
LOC: M.ERS 08:04 → M.2W 10:43 → M.TBA-ER 10:43 → M.2W 13:28 → M.ORTHSURG 09-12 07:39 → M.2W 09-19 13:17
PROVIDERS: Internal Medicine; Internal Medicine Critical Care Medicine; Internal Medicine Nephrology; Personal Emergency Response Attendant; ADMIT Internal Medicine; ATTEND Internal Medicine
PROC: 0W9B3ZZ Drainage of Left Pleural Cavity, Percutaneous Approach (ICD-10-PCS; principal; 2019-09-09)
PROC: 0W9B30Z Drainage of Left Pleural Cavity with Drainage Device, Percutaneous Approach (ICD-10-PCS; 2019-09-10)
PROC: 0WPB30Z Removal of Drainage Device from Left Pleural Cavity, Percutaneous Approach (ICD-10-PCS; 2019-09-14)
PROC: 0WWB30Z Revision of Drainage Device in Left Pleural Cavity, Percutaneous Approach (ICD-10-PCS; 2019-09-20)
DX: A41.9 Sepsis, unspecified organism (principal); J18.9 Pneumonia, unspecified organism; J96.01 Acute respiratory failure with hypoxia; J91.8 Pleural effusion in other conditions classified elsewhere; E44.0 Moderate protein-calorie malnutrition; I48.92 Unspecified atrial flutter; N17.9 Acute kidney failure, unspecified; F32.9 Major depressive disorder, single episode, unspecified; G47.10 Hypersomnia, unspecified; I10 Essential (primary) hypertension; J43.9 Emphysema, unspecified; N14.1 Nephropathy induced by other drugs, medicaments and biological substances; T36.8X5A Adverse effect of other systemic antibiotics, initial encounter; Y92.89 Other specified places as the place of occurrence of the external cause; Z68.28 Body mass index [BMI] 28.0-28.9, adult; Z99.81 Dependence on supplemental oxygen; Z82.49 Family history of ischemic heart disease and other diseases of the circulatory system; Z79.01 Long term (current) use of anticoagulants; Z79.2 Long term (current) use of antibiotics; Z79.899 Other long term (current) drug therapy; Z88.1 Allergy status to other antibiotic agents; Z88.8 Allergy status to other drugs, medicaments and biological substances; Z20.828 Contact with and (suspected) exposure to other viral communicable diseases

== ENCOUNTER → 2019-09-30 | Outpatient (CLI) | payer OTHER ==
[~2019-09-30] MED LIST changes: +AMOX TR-K CLV1 EAC3 PO; +CARVEDILOL12.5 MG PO; +FLORASTOR250 MG PO; +HYDRALAZINE 10M10 MG PO; +LEVAQUIN 500 M500 M3 PO; +LISINOPRIL2.5 MG PO; +NORVASC10 MG PO; +OLANZAPINE5 M1 PO
== END ==
LOC: M.RAD 10:23
PROVIDERS: ATTEND Internal Medicine Critical Care Medicine
DX: J98.11 Atelectasis (principal); J90 Pleural effusion, not elsewhere classified

== ENCOUNTER → 2019-11-05 | Outpatient (CLI) | payer OTHER ==
--- NOTE | 2019-11-21 22:03 | SLEEP ---
[address] [address] SLEEP STUDY REPORT Name: BUTCH ROSAS Room: [facility]#: [id number] Admission: 11/05/19 Attend Phys: Michael Buck MD Discharge: Date of : 63 Report #: [id number] THIS REPORT FOR: //name// CC: Michael Ramsey This study has been reviewed in its entirety by a board certified sleep specialist DATE OF SERVICE: 11/05/2019 INDICATION FOR SLEEP STUDY: Hypersomnia. INTERPRETATION: Total duration of the study is 425 minutes out of which he was asleep for 359 minutes with an overall sleep efficiency of 84.4%. Sleep onset initially occurred 8 minutes after lying down in bed and REM onset was delayed to 295 minutes after sleep onset. N1 sleep duration was 11%, N2 duration was 56%, N3 duration was 25% and REM duration was 9%. Mean heart rate during the sleep study was 69. Periodic limb movement index was only mildly elevated to 15.9. The periodic limb movement index with arousals normal at 5.4. There was mild sleep fragmentation observed with an arousal index elevated to 22.4. We did record multiple sleep related respiratory events, these included 6 central apneas, 6 obstructive apneas, 37 hypopneas and 32 respiratory effort related arousals. The overall apnea-hypopnea index was 8.2. REM apnea-hypopnea index was higher at 36.8. The respiratory disturbance index was 13.6. Body position data indicates that the patient was lying on the right or left side throughout the sleep study. There is no supine sleep recorded. The patient also did have multiple desaturations. Overall, the patient spent 38 minutes below an O2 saturation of 90%, out of which 28.5 minutes were spent below an O2 saturation of 88%. IMPRESSION: Obstructive sleep apnea with apnea-hypopnea index of 8.2 with nocturnal hypoxemia as described above. Events do appear to be more common when the patient is in REM sleep. Supine sleep was not observed during the sleep study. RECOMMENDATIONS: I would recommend proceeding to a repeat sleep study for positive airway pressure titration. I would recommend avoiding driving or other activities requiring [place] [address] SLEEP STUDY REPORT Name: BUTCH ROSAS Room: [facility]#: [id number] Admission: 11/05/19 Attend Phys: Michael Buck MD Discharge: Date of : 63 Report #: [id number] This entire sleep study was reviewed by board certified sleep physician. <ELECTRONICALLY SIGNED> By: Michael Buck MD 11/21/19 2203 1916 Juana Buck MD /nt
== END ==
LOC: M.SLEEPLAB 20:00
PROVIDERS: ATTEND Internal Medicine Critical Care Medicine
DX: G47.33 Obstructive sleep apnea (adult) (pediatric) (principal)

== ENCOUNTER 2020-05-11 08:53 | Emergency (ER) | payer OTHER ==
[~2020-05-11] VITALS: Ht 175.3 cm; Wt 88.5 kg
[2020-05-11] MEDS ORDERED: BACTRIM DS TAB1 EAC1 PO (09:28)
[2020-05-11 09:46] VITALS: BP 134/93
== END 2020-05-11 09:46 | disposition home or self-care (01) ==
LOC: M.ERS 08:53
DX: S61.401A Unspecified open wound of right hand, initial encounter (principal); F32.9 Major depressive disorder, single episode, unspecified; I10 Essential (primary) hypertension; Z79.899 Other long term (current) drug therapy; Z88.1 Allergy status to other antibiotic agents; Z91.041 Radiographic dye allergy status; W26.8XXA Contact with other sharp object(s), not elsewhere classified, initial encounter; Y93.89 Activity, other specified; Y92.89 Other specified places as the place of occurrence of the external cause; Y99.8 Other external cause status

== ENCOUNTER → 2021-04-14 | Outpatient (CLI) | payer OTHER ==
[~2021-04-14] MED LIST changes: +BACTRIM DS TAB1 EAC1 PO
--- NOTE | 2021-04-22 19:12 | SLEEP ---
[address] [address] SLEEP STUDY REPORT Name: RALPHBUTCH Hao Room: [facility]#: [id number] Admission: 04/14/21 Attend Phys: Michael Buck MD Discharge: Date of : 63 Report #: [id number] THIS REPORT FOR: cc: Abhi Ramsey John E. DO Pervez, Adeel MD ~ DATE OF STUDY: 04/14/2021 SLEEP STUDY INDICATION FOR SLEEP STUDY: Obstructive sleep apnea diagnosed on the previous diagnostic sleep study from 10/2019. INTERPRETATION: Total duration of the study is 443 minutes. During this time duration, the patient was asleep for 401 minutes with an overall sleep efficiency of 90.4%. Sleep onset initially occurred 1 minute after lying down in bed and therefore was rapid. REM onset occurred 124 minutes after sleep onset. N1 sleep duration is 24%, N2 duration is 48%, N3 duration is 13% and REM duration is 15%. Body position data indicates the patient was lying supine for 182 minutes during this sleep study. The rest of the time the patient was either on the right or left side. Periodic limb movement index is normal at 0.6 and arousal index is normal at 6.6. O2 saturation is mostly maintained at or above 90%, dropping below 90% for only 1.4 minutes during this sleep study. Mean heart rate was 69. This is a CPAP titration. Review of the CPAP titration indicates that initially the patient was on a CPAP pressure of 5 cm of water. This was subsequently increased to 7 cm of water. The patient continued to have occasional sleep related respiratory events throughout the sleep study. These did include a total of 16 central apneas. Apnea-hypopnea index on a CPAP pressure of 5 cm of water is 33.9 and on 7 cm of water is 10. This does not appear to be significantly different from his diagnostic sleep study. It is, however, noted that as above, the patient's O2 saturations are now essentially normal, arousal index is normal, and periodic limb movement index is also normal. IMPRESSION: The patient does have obstructive sleep apnea based on his previous diagnostic sleep study. During this sleep study, the patient still did have occasional sleep related respiratory events despite having a CPAP in place and his apnea-hypopnea index does not appear to be significantly different from his diagnostic night; however, as above, O2 saturations as well as arousal index are now normal and we did observe sustained REM supine sleep with CPAP in place. There was mild elevation in apnea-hypopnea index. RECOMMENDATIONS: For now, we will go ahead and place the patient on a CPAP auto titrated device. We will keep the pressure range on the lower side from 4 to [address] [place] [id number] SLEEP STUDY REPORT Name: BUTCH ROSAS Room: [facility]#: [id number] Admission: 04/14/21 Attend Phys: Michael Buck MD Discharge: Date of : 63 Report #: [id number] cm of water with heated humidity and mask per patient preference while asleep. During the sleep study, we used a [employer] DreamWear under the nose medium nasal piece mask. We will reevaluate in subsequent office visits. We will also review the patient's memory card data. In case the patient is not adequately controlled with this therapy, then considering the presence of central events during the sleep study, I would subsequently consider bringing the patient back to the sleep lab and performing a BiPAP titration, but it does appear reasonable to try a CPAP auto titrated device with the CPAP pressures on the lower side, first as apnea-hypopnea index elevation during the diagnostic sleep study is mild and central events being seen with CPAP in place may in fact improve with regular use of CPAP. This entire sleep study was reviewed by board certified sleep physician. <ELECTRONICALLY SIGNED> By: Michael Buck MD 04/22/21 1912 1306 [id number] Buck MD /nt
== END ==
LOC: M.SLEEPLAB 20:00
PROVIDERS: ATTEND Internal Medicine Critical Care Medicine
DX: G47.33 Obstructive sleep apnea (adult) (pediatric) (principal); R09.02 Hypoxemia